=== PATIENT | female | born 2000 | race Caucasian/White ===

== ENCOUNTER 2022-03-09 00:02 | Inpatient (IN) | payer OTHER ==
[~2022-03-09] VITALS: Ht 166.4 cm; Wt 92.5 kg
[2022-03-09] MEDS ORDERED: PEPCID AC10 MG PO (00:57)
[2022-03-09] MEDS ORDERED: PRENATAL GUMMI1 EACH PO (00:57)
[2022-03-09] MEDS ORDERED: FIBER500 MG PO (01:07)
--- NOTE | 2022-03-09 05:00 | NUR ---
COVID 19 SWAB DONE TO BOTH NARES AND SENT TO IN HOUSE LAB.
--- NOTE | 2022-03-09 17:50 | PR ---
[facility] [address] [facility] [place], [place] [address] Signed Progress Notes IP Datetime Report Generated by CPN: 03/09/2022 17:50 PROGRESS NOTES: [id number] Impression: Normal Progression of Labor Plan: Continue Present Management VITAL SIGNS: [id number] Vital Signs: Reviewed; Within Normal Limits EXAM: [id number] Dilatation: 10.0 Effacement: 100 Station: 1 Contractions: every 2 minutes MEMBRANES: [id number] Membranes Status: Ruptured Comments: Uncomfortable, Epidural only working partially. No urge to push. Will try "Hands-Knees" since fetus is OP FETUS A: [id number] FHR Baseline: 150 Variability: Moderate 6-25bpm Accelerations: 15X15 Presentation: Vertex FETUS B: [id number] Signing Physician: Caitlin Maynard MD Copies: ~ *Electronically Signed* 03/09/22 1750 CAITLIN MAYNARD MD PATIENT NAME: SOHEILA IBARRA PROGRESS NOTE DATE OF : 00 PHYSICIAN: CAITLIN MAYNARD MD RPT #: [id number] REPORT IS CONFIDENTIAL AND NOT TO BE RELEASED WITHOUT AUTHORIZATION
--- NOTE | 2022-03-09 19:44 | PR ---
[facility] [address] [place], [place] [address] Signed Progress Notes IP Datetime Report Generated by VICKY: 03/09/2022 19:44 PROGRESS NOTES: [id number] Impression: Arrest of Dilatation/Descent Plan: Deliver- Section Informed Consent Obtain: Section Delivery; Risks, Benefits and Alternatives Discussed VITAL SIGNS: [id number] Vital Signs: Reviewed; Within Normal Limits EXAM: [id number] Dilatation: 10.0 Effacement: 100 Station: 1 Contractions: every 2 minutes MEMBRANES: [id number] Membranes Status: Ruptured Comments: Pushing for 1 hour with no change in descent at all, except for more caput, vertex now actually less applied to coccyx that before. Fetus thought to be LGA form U/S late in . Fetus only tolerating pushing on right side, has had frequent variable and late decels requiring frequent position change, now tachycardic. Patient getting tired and Epidural working only partially. Recommend C/S for arrest of descent and non-reassuring FHR tracing. OR and Anesthesia called for Primary C/S. Discussed plan/procedure with patient, questions answered. Consent signed. body recall instructor to OR for Primary C/S Ancef and Zithromax ordered for pre-op antibiotic prophylaxis. FETUS A: [id number] FHR Baseline: 150 Variability: Moderate 6-25bpm Accelerations: 15X15 Presentation: Vertex FETUS B: [id number] Signing Physician: Blaine Maynard MD Copies: ~ *Electronically Signed* 03/09/221943 BLAINE MAYNARD MD PATIENT NAME: SOHEILA IBARRA PROGRESS NOTE DATE OF : 00 PHYSICIAN: BLAINE MAYNARD MD RPT #: [id number] REPORT IS CONFIDENTIAL AND NOT TO BE RELEASED WITHOUT AUTHORIZATION
--- NOTE | 2022-03-10 15:39 | PR ---
[facility] [address] [facility] [place], [place] [address] Signed PP Progress Notes Datetime Report Generated by CPN: 03/10/2022 15:38 SUBJECTIVE: [id number] Pain: Within Normal Limits Nausea/Vomiting: Denies Vital Signs: [id number] Vital Signs: Reviewed; Within Normal Limits EXAM: Ongoing Abdomen/Uterus: Normal Lochia: Normal Extremities: Normal Incision: Normal IMPRESSION/PLAN/PROCEDURES: [id number] Impression: Normal Progression Plan: Continue Present Management Procedures: None Progress Notes: Doing well without complaint, good urine output now, but still slighlty concentrated. Encouraged to increase waater intake. tolerating pain with just Tylenol and Ibuprofen (cannot take narcotics due to halucinations). Increase activity as tolerated, may shower. Signing Physician: Caitlin Maynard MD Copies: ~ *Electronically Signed* 03/10/22 1538 CAITLIN MAYNARD MD PATIENT NAME: SOHEILA IBARRA PROGRESS NOTE DATE OF : 00 PHYSICIAN: CAITLIN MAYNARD MD RPT #: [id number] REPORT IS CONFIDENTIAL AND NOT TO BE RELEASED WITHOUT AUTHORIZATION
--- NOTE | 2022-03-11 07:39 | OR ---
[facility] [address] [place], [place] [address] Signed DATE OF OPERATION: 03/09/2022 SURGEON: Blaine Sawyer MD PREOPERATIVE DIAGNOSIS: Failure to descend, non-reassuring heart rate tracing and COVID positive. POSTOPERATIVE DIAGNOSIS: Same plus persistent posterior presentation. PROCEDURE: Primary low-transverse segment section, delivery of live male infant. 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 Brown. ANESTHESIA: Spinal. ESTIMATED BLOOD LOSS: 500 mL. COMPLICATIONS: None. DRAINS: Lopes to bladder. FINDINGS: Live male in ROP Presentation, Apgars 7 and 8. Weight 7 pounds 5 ounces. Normal uterus. Normal tubes and ovaries bilateral. DESCRIPTION OF PROCEDURE: The patient was brought to the operating room, placed in supine position. After adequate spinal anesthesia was obtained, was prepped and draped in usual sterile fashion. Lopes catheter was placed in the bladder and there was blood noted to be in the bladder before starting the procedure. A Pfannenstiel skin incision was made with scalpel, extended through subcutaneous tissue with the Bovie. The fascia was nicked with scalpel and extended in transverse fashion using curved scissors. The underlying Electronically Signed By: BLAINE SAWYER MD 03/11/22 0739 PATIENT NAME: SOHEILA IBARRA OPERATIVE REPORT DATE OF : 00 REPORT #: [id number] PHYSICIAN: BLAINE SAWYER MD PCP: NO PRIMARY CARE PHYSICIAN REPORT IS CONFIDENTIAL AND NOT TO BE RELEASED WITHOUT AUTHORIZATION [facility] [address] [place], [place] [address] Signed abdominal musculature was bluntly and sharply from the fascia above and below the incision. The abdominal musculature was bluntly sharply along the midline. The peritoneum was grasped with hemostat, elevated, nicked with scissors and extended in vertical fashion using curved scissors. The Garrison self-retaining retractor was inserted into the incision. The lower uterine segment was carefully nicked with the scalpel. It was noted to be quite thin. The incision was extended in transverse fashion using finger dissection. The was noted to be in the vertex ROP presentation. The head was wedged tightly in the pelvis and did take some extra time to relieve the head, bring the head out to the incision, and then flex the head and bring it out of the incision. Then the infant was then easily delivered from the incision. The cord was doubly clamped and cut. The was passed off table in good condition awaiting nurse. The placenta was manually removed. Uterine cavity explored a lap pad to remove any retained membranes. The incision was noted to have extended on both sides around into the broad ligament and down towards the bladder and so the area was carefully inspected. Running locking stitches of 0 Monocryl were started at each end of the extension by putting a hand behind the broad ligament to make sure no bowel or pelvic structures were caught within the closure and starting at the extension bringing this up to the normal uterine incision. This was done on both sides and then the rest of the incision was closed using running locking stitch of 0 Monocryl suture, closing the entire incision. A second running stitch of 0 Monocryl was used to imbricate the first layer again on both sides and in the broad ligament with a finger behind to make sure no bowel or pelvic structures were caught and avoiding any major vessels. Good hemostasis was then noted at this side. At this point, the urine was now clear. Because of blood in the urine prior to starting and the extension close to the bladder, the bladder was filled with sterile milk and carefully observed. There were no defects and the bladder appeared to be well away from the uterine closure, so the bladder was re-drained of the milk and the Lopes left in place. Because of the long raw area, the Garrison self-retaining retractor was removed and the lower uterine segment sprayed with Tisseel to help with hemostasis. The anterior wall of peritoneum was then closed using running stitch of 2-0 Vicryl suture. The fascia was closed using 2-0 running stitch of 0 Vicryl suture meeting in the midline. The abdominal musculature was irrigated, suctioned, and examined, and any bleeding spots were cauterized with the Bovie. The fascia was then closed using two running stitch of 0 Vicryl suture meeting in the midline. The subcutaneous tissue was irrigated, suctioned, and examined, and any bleeding spots cauterized with the Bovie. Subcutaneous tissue was closed using interrupted stitches of 3-0 Vicryl suture. The skin was reapproximated using skin clips. The patient tolerated the procedure well, went to recovery room in good condition. The sponge, needle, instrument count were correct at the end the procedure. Electronically Signed By: BLAINE SAWYER MD 03/11/22 0739 PATIENT NAME: SOHEILA IBARRA OPERATIVE REPORT DATE OF : 00 REPORT #: [id number] PHYSICIAN: BLAINE SAWYER MD PCP: NO PRIMARY CARE PHYSICIAN REPORT IS CONFIDENTIAL AND NOT TO BE RELEASED WITHOUT AUTHORIZATION [address] [address] Signed MD KRISTAN Joyce/MODL /[id number] Copies: ~ Electronically Signed By: BLAINE SAWYER MD 03/11/22 0739 PATIENT NAME: SOHEILA IBARRA OPERATIVE REPORT DATE OF : 00 REPORT #: [id number] PHYSICIAN: BLAINE SAWYER MD PCP: NO PRIMARY CARE PHYSICIAN REPORT IS CONFIDENTIAL AND NOT TO BE RELEASED WITHOUT AUTHORIZATION
--- NOTE | 2022-03-11 12:54 | PR ---
[facility] [address] [facility] [place], [place] [address] Signed PP Progress Notes Datetime Report Generated by CPN: 03/11/2022 12:54 SUBJECTIVE: [id number] Pain: Within Normal Limits Nausea/Vomiting: Denies Vital Signs: [id number] Vital Signs: Reviewed; Within Normal Limits Notable Details: PP Hgb/Hct = 10.3/31.9 EXAM: Ongoing Abdomen/Uterus: Normal Lochia: Normal Extremities: Normal Incision: Normal IMPRESSION/PLAN/PROCEDURES: [id number] Impression: Normal Progression Plan: Discharge Procedures: None Progress Notes: Doing well, without complaint, tolerating food, showering without problem, voiding without difficulty, wants to go home. Signing Physician: Caitlin Maynard MD Copies: ~ *Electronically Signed* 03/11/22 1254 CAITLIN MAYNARD MD PATIENT NAME: SOHEILA IBARRA PROGRESS NOTE DATE OF : 00 PHYSICIAN: CAITLIN MAYNARD MD RPT #: [id number] REPORT IS CONFIDENTIAL AND NOT TO BE RELEASED WITHOUT AUTHORIZATION
== END 2022-03-11 18:27 | disposition home or self-care (01) | DRG 786 ==
LOC: FBC 00:02
PROVIDERS: ADMIT General Practice; ATTEND General Practice
PROC: 10907ZC Drainage of Amniotic Fluid, Therapeutic from Products of Conception, Via Natural or Artificial Opening (ICD-10-PCS; 2022-03-09)
PROC: 3E0P7VZ Introduction of Hormone into Female Reproductive, Via Natural or Artificial Opening (ICD-10-PCS; 2022-03-09)
PROC: 10D00Z1 Extraction of Products of Conception, Low, Open Approach (ICD-10-PCS; principal; 2022-03-09 20:00)
DX: O36.63X0 Maternal care for excessive fetal growth, third trimester, not applicable or unspecified (principal); U07.1 COVID-19; O98.52 Other viral diseases complicating childbirth; Z37.0 Single live birth; Z3A.39 39 weeks gestation of pregnancy; Z67.40 Type O blood, Rh positive; O62.1 Secondary uterine inertia; O32.8XX0 Maternal care for other malpresentation of fetus, not applicable or unspecified
CPT/HCPCS: 36415; 76942; 85027; 86850; 86900; 86901; 87502; A9270; C9803; J0456; J1885; J2001; J2274; J2405; J2795; J3010; J7121; U0003